=== PATIENT | male | born 1945 | race Caucasian/White ===

== ENCOUNTER 2024-10-05 07:14 | Outpatient (CLI) | payer MEDICARE, OTHER, SELFPAY ==
--- NOTE | ~2024-10-05 | MR_ITS ---
MRI of the abdomen: Clinical indication: IPMN. Technique: Coronal SSFSE ARC, WATER:coronal LAVA-FLEX, Coronal 2D FIESTA FatSat, Axial SSFSE BH ARC, Axial 3D DualEcho BH, Axial SSFSE-IR, Axial DWI b=500, Axial 2D FIESTA FatSat, pre and dynamic postco ntrast Axial LAVA ARC, postcontrast Coronal In and Opposed phase LAVA FLEX. Following intravenous adm inistration of 20 cc MultiHance gadolinium, T1-weighted fat-sat imaging was performed in the axial an d coronal planes. Findings: Gallbladder unremarkable. The common bile duct is normal in course and caliber. No filling defects are seen within the CBD. No evidence of intrahepatic biliary ductal dilatation. The pancreati c duct is normal in size. Liver, spleen, adrenals, kidneys appear normal. 1.6 cm cystic mass present at the pancreatic head/nec k junction. The aorta and the paraaortic regions appear normal. No abnormal postcontrast enhancement identified. Impression: 1.6 cm cystic mass in the pancreatic head neck junction, which could reflect IPMN. Reviewed, dictated and finalized at location . Impression: 1.6 cm cystic mass in the pancreatic head neck junction, which could reflect IP MN.
== END 2024-10-05 07:15 | disposition home or self-care (01) ==
PROVIDERS: Visit Provider Internal Medicine Medical Oncology
DX: D49.0 Neoplasm of unspecified behavior of digestive system (principal)
CPT/HCPCS: 74183; 76376; A9577